=== PATIENT | male | born 1940 | race Caucasian/White ===

== ENCOUNTER → 2021-04-15 | Outpatient (CLI) | payer MEDICARE, OTHER ==
[~2021-04-15] MED LIST: ASPIR 8181 MG PO; COLACE 100MG C100 MG PO; COLESTIPOL HCL1 GM PO; GLIMEPIRIDE1 MG PO; ISOSORBIDE DINI30 MG PO; LIPITOR TAB 1010 MG PO; LISINOPRIL2.5 MG PO; MOBIC7.5 MG PO; MULTI-VITAMIN1 EACH PO; NADOLOL40 MG PO; NORCO 7.5-3251 EACH PO; NORVASC 5 MG TAB5 MG PO; PRINIVIL10 MG PO; PROTONIX40 MG PO; ULORIC80 MG PO; VIT C PO; VIT D PO; XALATAN2.5 ML OP
== END ==
LOC: KOH-I 14:22
DX: M54.2 Cervicalgia (principal); M62.830 Muscle spasm of back; M47.812 Spondylosis without myelopathy or radiculopathy, cervical region
CPT/HCPCS: 72050

== ENCOUNTER → 2021-07-22 | Outpatient (CLI) | payer MEDICARE, OTHER | LOC: EMI 15:39 | DX: M50.11 Cervical disc disorder with radiculopathy, high cervical region (principal); M25.78 Osteophyte, vertebrae; M48.02 Spinal stenosis, cervical region; M48.03 Spinal stenosis, cervicothoracic region; E66.9 Obesity, unspecified | CPT/HCPCS: 72141 ==

== ENCOUNTER 2022-05-12 16:47 | Emergency (ER) | payer MEDICARE, OTHER ==
[2022-05-12 17:30] LABS: HEMOGLOBIN 16.2 gm/dl (14.0-17.5); RED BLOOD COUNT 5.25 M/UL (4.20-5.50); WHITE BLOOD COUNT 10.1 K/UL (4.5-11.0)
== END 2022-05-12 22:05 | disposition home or self-care (01) ==
LOC: ER1 16:47
PROVIDERS: Physician Assistant Medical
DX: R55 Syncope and collapse (principal); R79.1 Abnormal coagulation profile; I10 Essential (primary) hypertension; Z90.49 Acquired absence of other specified parts of digestive tract
CPT/HCPCS: 70496; 70498; 71045; 80053; 82550; 82553; 84484; 85025; 85379; 93005; 96360; 99284; Q9967

== ENCOUNTER → 2022-05-25 | Outpatient (CLI) | payer MEDICARE, OTHER | LOC: ECHO 12:45 → EDBD 13:00 | DX: I10 Essential (primary) hypertension (principal); E78.2 Mixed hyperlipidemia; E11.9 Type 2 diabetes mellitus without complications; I25.10 Atherosclerotic heart disease of native coronary artery without angina pectoris; R55 Syncope and collapse; I65.23 Occlusion and stenosis of bilateral carotid arteries; I34.0 Nonrheumatic mitral (valve) insufficiency; I37.1 Nonrheumatic pulmonary valve insufficiency | CPT/HCPCS: ECHO; 93306; 93880 ==

== ENCOUNTER → 2022-07-01 | Outpatient (CLI) | payer MEDICARE, OTHER | LOC: HEART 5 08:30 | DX: R55 Syncope and collapse (principal) | CPT/HCPCS: 78452; A9502; J2785 ==